=== PATIENT | female | born 1990 | race Caucasian/White ===

== ENCOUNTER 2017-02-20 19:40 | Emergency (ER) | payer OTHER ==
[2017-02-20 19:57] VITALS: BP 129/80; PULSE 86; RESP 16; TEMP 97.8; O2SAT 98
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
--- NOTE | 2017-02-21 10:48 | RAD ---
HISTORY: right sided chest pain, s/p fall COMPARISON: No prior. TECHNIQUE: Chest PA and lateral FINDINGS: LUNGS: No active pulmonary disease. PLEURA: No significant pleural effusion identified. No pneumothorax apparent. CARDIOVASCULAR: Normal. OSSEOUS STRUCTURES: No significant abnormalities. VISUALIZED UPPER ABDOMEN: Normal. OTHER FINDINGS: None. IMPRESSION: No active disease.
== END 2017-02-20 22:44 | disposition home or self-care (01) ==
LOC: H.ER 19:40
DX: S20.219A Contusion of unspecified front wall of thorax, initial encounter (principal); Y92.89 Other specified places as the place of occurrence of the external cause